=== PATIENT | male | born 1950 | race Caucasian/White ===

== ENCOUNTER 2017-05-11 09:29 | Inpatient (IN) | payer OTHER ==
[~2017-05-11] VITALS: Ht 167.6 cm; Wt 89.8 kg
[~2017-05-11 09:29] MED LIST: AMLO2.5T45 PO; LACTATED RINGERS 1,000 ML IV SCH; MELO-106 PO
[2017-05-11 10:10] LABS: CLARITY URINE CLEAR (CLEAR); COLOR URINE YELLOW (YELLOW); KETONES URINE NEGATIVE (NEGATIVE); LEUKOCYTE ESTERASE URINE 1+ (NEGATIVE); NITRITE URINE NEGATIVE (NEGATIVE); OCCULT BLOOD URINE TRACE (NEGATIVE); PROTEIN URINE TRACE (NEGATIVE); SPECIFIC GRAVITY URINE 1.016 (1.005-1.030); UROBILINOGEN URINE 0.2 E.U./dL (0.2-1.0)
[2017-05-11] MEDS ORDERED: LACTATED RINGERS 1,000 ML IV SCH (10:30)
[2017-05-11] MEDS ORDERED: FENTANYL CITRATE/PF 50MCG/ML 2ML VIAL ONE (11:48)
[2017-05-11] MEDS ORDERED: MIDAZOLAM HCL 2 MG/2 ML VIAL ONE (11:49)
[2017-05-11] MEDS ORDERED: PROPOFOL 200MG/20ML VIAL IV ONE (11:49)
[2017-05-11] MEDS ORDERED: GENTAMICIN SULF 40MG/ML 2ML VIAL ONE (11:49)
[2017-05-11] MEDS ORDERED: METHYLENE BLUE 50 MG/10 ML AMP IV ONE (12:05)
[2017-05-11] MEDS ORDERED: ONDANSETRON HCL 4MG/2ML VIAL IV PRN ×2 (12:30→12:45)
[2017-05-11] MEDS ORDERED: LABETALOL HCL 5MG/ML VIAL 20ML IV PRN (12:30)
[2017-05-11] MEDS ORDERED: MEPERIDINE HCL/PF 25MG/ML CPJ IV PRN (12:30)
[2017-05-11] MEDS: HYDROMORPHONE HCL/PF 2MG/ML CPJ IV PRN ×2 (14:04→14:10)
[2017-05-11 20:00] VITALS: BP 123/80
[2017-05-11 20:51] VITALS: BP 123/80
[2017-05-11] MEDS ORDERED: DEXT 5%/0.45% NACL KCL 20MEQ/L 1,000 ML IV SCH (21:00)
[2017-05-11] MEDS ORDERED: LEVOFLOXACIN 500MG PREMIX 100 ML IV SCH ×2 (21:00)
[2017-05-12] VITALS: BP 134/57
[2017-05-12] MEDS ORDERED: ACETAMINOPHEN 325MG TABLET PO PRN (01:00)
[2017-05-12 04:00] VITALS: BP 101/74
[2017-05-12 08:00] VITALS: BP 141/75
[2017-05-12 12:00] VITALS: BP 129/78
[2017-05-12 14:25] VITALS: BP 138/88
[2017-05-12] MEDS ORDERED: TYLENOL #3 PO (15:54)
[2017-05-12] MEDS ORDERED: DOCU-138 PO ×2 (15:55)
[2017-05-12] MEDS ORDERED: SULF1TAB48 PO (15:56)
[2017-05-12 16:00] VITALS: BP 145/84
== END 2017-05-12 18:35 | disposition home or self-care (01) | DRG 670 ==
LOC: OR 09:29 → 6EST 11:30
PROVIDERS: ADMIT Urology; ATTEND Urology
PROC: 0TBC8ZZ Excision of Bladder Neck, Via Natural or Artificial Opening Endoscopic (ICD-10-PCS; principal; 2017-05-11 11:30)
DX: D49.4 Neoplasm of unspecified behavior of bladder (principal); I10 Essential (primary) hypertension; N41.1 Chronic prostatitis; N40.1 Benign prostatic hyperplasia with lower urinary tract symptoms; Z88.0 Allergy status to penicillin
CPT/HCPCS: 81001; 87077; 87086; 87186; 88305; J1170; J1580; J1956; J2250; J2405; J2704; J3010; Q9968

== ENCOUNTER 2017-06-27 21:35 | Emergency (ER) | payer OTHER ==
[~2017-06-27] VITALS: Ht 165.1 cm; Wt 91.0 kg
[~2017-06-27 21:35] MED LIST changes: +DOCU-138 PO; -LACTATED RINGERS 1,000 ML IV SCH; +SULF1TAB48 PO; +TYLENOL #3 PO
[2017-06-27] MEDS ORDERED: ACETAMINOPHEN 325MG TABLET PO ONE (22:45)
[2017-06-27 23:00] VITALS: BP 160/90
== END 2017-06-28 00:33 | disposition home or self-care (01) ==
LOC: ER 21:35
DX: M25.562 Pain in left knee (principal); W01.0XXA Fall on same level from slipping, tripping and stumbling without subsequent striking against object, initial encounter; Y93.89 Activity, other specified; Y92.89 Other specified places as the place of occurrence of the external cause; I10 Essential (primary) hypertension; Z85.51 Personal history of malignant neoplasm of bladder; Z88.0 Allergy status to penicillin
CPT/HCPCS: 73562; 73630; 99284